=== PATIENT | female | born 1955 | race Caucasian/White ===

== ENCOUNTER 2016-09-21 07:34 | Emergency (ER) | payer OTHER ==
[~2016-09-21] VITALS: Ht 175.3 cm; Wt 90.9 kg
[2016-09-21 07:36] VITALS: BP 136/78; PULSE 78; RESP 15; O2SAT 99
--- NOTE | 2016-09-21 07:47 | ED.REPORT ---
HPI-Extremity Problem Upper Date of Service September 21, 2016 ED Provider: Aaron Lynne MD The patient is a 61 year old female who presents to the ED accompanied by her due to severe left, mid-palm, pain onset yesterday after mowing the lawn. She denies any sort of injury or trauma that could have caused the pain. She is tearful and anxious at the ED. Nursing Notes Stated Complaint: LEFT WRIST PAIN Chief Complaint: Extremity Trauma Nursing Notes Reviewed: Yes Allergies: Coded Allergies: Sulfa (Sulfonamide Antibiotics) (Verified Allergy, Intermediate, HIVES, ) General Time Seen by MD: 07:47 Chief Complaint Hand Injury left Hx Obtained From: Patient Arrived By: Walk-in Onset Occurred: Yesterday Symptom Duration: Since onset Context: Occurred at: Home injury Location: : Hand left Quality: Painful Severity: Current: Mild Recent Healthcare: No recent doctor visit, No recent hospitalization Similar Sx Previous: No Past Medical History Past Medical History denies Past Surgical History denies Smoking History Unknown if Ever Smoker Social History Other Social History: Good social support, , Local resident Ambulatory Status Independent Review of Systems Musculoskeletal: Reports: Extremity pain (left mid-palm pain) Neurologic: Denies: Dizziness, Lightheaded, Numbness, Weakness Complete sys rev & neg: except as marked. Physical Exam Initial Vital Signs Vital Signs (First) Date Time Temp Pulse Resp B/P Pulse Ox O2 Delivery O2 Flow Rate FiO2 09/21/16 07:36 35.8 78 15 136/78 99 Room Air Initial VS: Reviewed Head / Eyes: Atraumatic, Normocephalic, PERRL ENT: Mucous membranes moist, Conjunctiva normal Neck: Supple, Non-tender Respiratory: Breath sounds normal, Clear to auscultation, No respiratory distress Cardiovascular: Regular rate & rhythm, Heart sounds normal, Intact distal pulses Abdomen / GI: Soft, Non-tender, No guarding, No rebound, No distention Lower Extremities: Vascular intact, Neuro intact, No swelling, No tenderness Skin: Warm, Dry General/Constitutional: Awake, Alert, Cooperative, Not toxic appearing Behavior: Positive: Anxious, Tearful Left Hand: Positive: Tenderness present... neurovascularly intact tender at base of first metacarpal on the left Neurologic: Oriented X3, Speech NL, No motor deficits, No sensory deficits Interpretation & Diagnostics X-Ray Interpretation Xray Interpretation: IMPRESSION: Degenerative changes without visualized fracture. However, if clinical concern and/or pain persist, short interval imaging followup in 7-10 days is recommended, as occult injury cannot be definitively excluded. Dictated by: Helen Antoine M.D. on 09/21/2016 at 9:21 Approved by: Helen Antoine M.D. on 09/21/2016 at 9:21 X-Ray Ordered: Hand left Interpretation / Wet Read by: Interpret - Radiologist Re-Eval/Medical Decision Med Decision/Clinical Course 61-year-old female presenting with left hand pain 1 day status post using lawnmower. She reports she used push lawn more extensively yesterday and now she has pain at the base of her left hand. She denies any trauma. Her neurological exam is completely normal. Her strength is 5 out of 5. She left upper shoulder is neurovascularly intact. Sensation is intact. She has tenderness at the base of the left fifth metacarpal. There is no evidence of fracture on exam. She reports radiating pain. Again there is no nerve compromise likely musculoskeletal cannot rule out ulnar neuropathy - symptoms isolated to pain. Patient declined pain medications, steroids, any other treatment. She is advised to follow-up with primary doctor on Friday. Return if pain or worsening weakness, numbness, tingling, pain, any other new or worsening symptoms. Re-Evaluation/Progress : Time of Eval: 09:15 Re-Evaluation/Progress Note: Pt rechecked. She is still in significant pain. Informed pt and family of plan of treatment and discharge. Pt understands and agrees with plan. All questions addressed. Counseled Regarding: Diagnosis, Lab results, Need for follow-up, When/why to return to ED Discharge & Departure Impression: Primary Impression: Hand injury Encounter type: initial encounter Laterality: left Qualified Code: S69.92XA - Unspecified injury of left wrist, hand and finger(s), initial encounter Disposition: Home Discharge Condition All VS Reviewed: Yes Condition: Stable Additional Instructions: Your x-ray did not show any acute findings and your nerve function is normal. If you have inflamed your ulnar nerve, this will heal naturally with time. I recommend a wrist splint, icing, and heating. Ice it 3 times a day for 20 minutes interspersed with heat. Follow up with your primary care physician on Friday for further evaluation. Return to the Emergency Room for any new or worsening symptoms including weakness and numbness. I hope you feel better soon! Referrals: [facility] Scribe Attestation Portion of this note were transcribed by Tram Sandoval. I, Dr. Lynne, personally performed the history, physical exam, and medical decision-making: I reviewed and confirmed the accuracy for the information in the transcribed note. Signed by: dale Sanchez, 09/21/16 0900 copies to: [facility] Aaron Lynne MD September 21, 2016 07:47 Tram Sandoval September 21, 2016 07:57
[2016-09-21] MEDS ORDERED: HYDROcodone-APAP 10-325 mg PO ONE (08:00)
--- NOTE | 2016-09-21 09:23 | DRSVH ---
PROCEDURE: X-RAY LEFT HAND, MINIMUM THREE VIEWS ([id number]) INDICATIONS: L hand pain TECHNIQUE: 3 views of the hand(s) acquired. COMPARISON: None. FINDINGS: Bones: No fractures or dislocations. Carpal bones are normally aligned. No suspicious bony lesions . Moderate diffuse DIP and PIP degenerative changes are present. Soft tissues: No suspicious soft tissue calcifications. IMPRESSION: Degenerative changes without visualized fracture. However, if clinical concern and/or pa in persist, short interval imaging followup in 7-10 days is recommended, as occult injury cannot be d efinitively excluded. Dictated by: Helen Antoine M.D. on 09/21/2016 at 9:21 Approved by: Helen Antoine M.D. on 09/21/2016 at 9:21
[2016-09-21 09:36] VITALS: BP 115/77; PULSE 69; RESP 18; O2SAT 95
== END 2016-09-21 09:43 | disposition home or self-care (01) ==
LOC: SED 07:34
DX: S69.92XA Unspecified injury of left wrist, hand and finger(s), initial encounter (principal); X50.9XXA Other and unspecified overexertion or strenuous movements or postures, initial encounter; Y93.H2 Activity, gardening and landscaping; Y92.096 Garden or yard of other non-institutional residence as the place of occurrence of the external cause; Y99.8 Other external cause status; Z88.2 Allergy status to sulfonamides